=== PATIENT | female | born 1990 | race Caucasian/White ===

== ENCOUNTER 2018-06-08 05:28 | Day surgery (SDC) | payer BC ==
[2018-06-07 14:14] VITALS: BMI 18.5
[2018-06-08] MEDS ORDERED: VASOPRESSIN 20 UNITS/ML VIAL IV ONE (16:05)
[2018-06-08] MEDS ORDERED: BUPIVACAINE HCL/PF 0.5% (5MG/ML) 10 ML VIAL ONE (16:05)
[2018-06-08] MEDS ORDERED: LIDOCAINE 1%/EPI 1:100000 (20 ML MULTI DOSE VIAL) ONE (16:05)
[2018-06-08] MEDS ORDERED: PROPOFOL 20 ML ONE ×2 (16:09→16:21)
[2018-06-08] MEDS ORDERED: LIDOCAINE HCL 1%, 10 MG/ML (20ML VIAL) ONE (16:09)
[2018-06-08] MEDS ORDERED: ceFAZolin SODIUM 1 GM VIAL IVPB ONE (16:28)
[2018-06-08] MEDS ORDERED: ceFAZolin SODIUM 1 GM VIAL ONE (16:28)
[2018-06-08] MEDS ORDERED: DEXAMETHASONE SOD PHOSPHATE 4 MG/1 ML VIAL ONE (16:31)
[2018-06-08] MEDS ORDERED: LIDOCAINE HCL 1%, 10 MG/ML (20ML VIAL) NR ONE (16:34)
[2018-06-08] MEDS ORDERED: BUPIVACAINE HCL/PF 0.5% (5MG/ML) 10 ML VIAL IJ ONE (16:34)
--- NOTE | 2018-06-08 16:51 | OP ---
Operative Note - Note: Operative Date: 06/08/18 Pre-Operative Diagnosis: Rectocele, perineocele Operation: Posterior Repair with Colporrhaphy and perineoplasty Findings: as dictated Implants: none Post-Operative Diagnosis: Same as Pre-op Surgeon: Deonte Ramirez Work Ticket Distributor: Kelsi Rogers Anesthesia: General, Local Estimated Blood Loss (mls): 10 (ml) Operative Report Dictated: Yes
[2018-06-08] MEDS ORDERED: oxyCODONE HCL 5 MG TABLET PO PRN (17:05)
[2018-06-08] MEDS ORDERED: ONDANSETRON 4 MG/2 ML VIAL IVPUSH PRN (17:05)
[2018-06-08] MEDS ORDERED: ACETAMINOPHEN 325 MG TABLET (FP) PO PRN (17:05)
[2018-06-08] MEDS ORDERED: LACTATED RINGERS SOLUTION 1,000 ML IV SCH (17:15)
[2018-06-08 18:28] VITALS: TEMP 97.8
[2018-06-08] MEDS ORDERED: oxyCODONE HCL 5 MG TABLET ONE (18:53)
[2018-06-08 20:13] VITALS: BP 138/74; PULSE 75
--- NOTE | 2018-06-09 09:13 | OP ---
DATE OF OPERATION: 06/08/2018 PREOPERATIVE DIAGNOSIS: Rectocele, perineocele. POSTOPERATIVE DIAGNOSIS: Rectocele, perineocele. PROCEDURE PERFORMED: Posterior colporrhaphy and perineoplasty. PRIMARY SURGEON: Deonte Ramirez MD DESCRIPTION OF PROCEDURE: After adequate anesthesia, patient was prepped and draped in dorsal lithotomy position. Dilute solution of Pitressin was injected into the anterior and posterior vaginal wall. Evaluation under anesthesia revealed no pelvic masses. A vertical incision was made with back wall extended down to the measured margins of the introitus and down to the mid perineum. The vaginal epithelium and the skin was excised in this area. The perirectal fascia was plicated out using 0 Vicryl suture in a continuous fashion. The superficial perineal muscle reapproximated using 0 Vicryl suture in interrupted fashion, thus rebuilding the perineal body. The back wall of the vagina and perineal skin was then closed using 2-0 Vicryl suture in a continuous fashion. The introitus was accommodating of the surgeons 2 fingers easily with no stenosis noted. The rectal examination was negative for any foreign bodies. Patient tolerated the procedure well, transferred to the recovery room in stable condition. All instrument and sponge counts were given to us as correct. Gildardo [id number]
--- NOTE | 2018-06-09 17:09 | SURG ---
Surgery Molder Apprentice Note Molder Apprentice: Kelsi Rogers PA-C (Suzy) Date of Service: 06/08/18 Diagnosis: Rectocele, perineocele Procedure: Posterior Repair with Colporrhaphy and perineoplasty I was present for the entirety of the operative procedure. For further detail, please refer to operative report. Visit type - Case Type Case Type: Scheduled - Emergency Emergency Visit: No - New patient This patient is new to me today: Yes Date on this admission: 06/09/18 - Critical Care Critical Care patient: No
== END 2018-06-08 19:55 | disposition home or self-care (01) ==
LOC: JASU-SURG 05:28
PROVIDERS: ATTEND Obstetrics & Gynecology Female Pelvic Medicine and Reconstructive Surgery
PROC: 0KQM0ZZ Repair Perineum Muscle, Open Approach (ICD-10-PCS; 2018-06-08)
PROC: 0JQC0ZZ Repair Pelvic Region Subcutaneous Tissue and Fascia, Open Approach (ICD-10-PCS; principal; 2018-06-08 15:00)
DX: N81.6 Rectocele (principal); N81.81 Perineocele
CPT/HCPCS: 84703; 94760